=== PATIENT | female | born 1950 | race Caucasian/White ===

== ENCOUNTER 2016-05-04 14:37 | Emergency (ER) | payer BC ==
[2016-05-04] MEDS ORDERED: TRAMADOL 50 MG TAB ONE (16:32)
[2016-05-04] MEDS ORDERED: EMYCIN OP OINT 3.5 GM ONE (16:33)
== END 2016-05-04 17:24 | disposition home or self-care (01) ==
LOC: ER 14:37
DX: H10.022 Other mucopurulent conjunctivitis, left eye (principal); Z79.899 Other long term (current) drug therapy

== ENCOUNTER 2016-05-05 21:34 | Emergency (ER) | payer BC ==
[2016-05-05] MEDS ORDERED: PROPARACAINE 0.5% OP SOLN ONE (22:12)
[2016-05-05] MEDS ORDERED: ONDANSETRON 4 MG VIAL ONE (22:25)
[2016-05-05] MEDS ORDERED: SODIUM CHLORIDE 0.9% 1,000 ML ONE (22:26)
[2016-05-05] MEDS ORDERED: PROMETHAZINE 25 MG/ML VIAL ONE (23:44)
[2016-05-05] MEDS ORDERED: LORAZEPAM 2 MG/ML VIAL ONE (23:45)
== END 2016-05-06 01:03 | disposition home or self-care (01) ==
LOC: ER 21:34
DX: R11.0 Nausea (principal); H10.022 Other mucopurulent conjunctivitis, left eye; Z79.899 Other long term (current) drug therapy; Z87.891 Personal history of nicotine dependence
CPT/HCPCS: 36415; 70450; 80048; 85025; 96361; 96365; 96375